=== PATIENT | female | born 1995 | race Caucasian/White ===

== ENCOUNTER → 2022-08-02 13:44 | Outpatient (CLI) | payer BC, SELFPAY ==
--- NOTE | ~2022-08-02 | US_ITS ---
US pelvic complete w TV DATE: 08/02/2022 14:11 INDICATION: Right pelvic and perineal pain TECHNIQUE: Real-time imaging via transabdominal and transvaginal approaches COMPARISON: 07/17/2022 transvaginal ultrasound examination FINDINGS: The uterus measures 6.1 cm height, 2.8 cm AP and 3.6 cm transverse dimension. The central e ndometrial echo complex measures 4 mm AP dimension. Right ovary 3.3 x 3.2 x 2.7 cm with vascular flow. There is a 1.5 x 1.8 x 2.1 cm hypoechoic lesion wi thin the right ovary; this is diminished from approximately 3.6 x 3.7 cm dimension on 07/17/2022 exam ination.. The left ovary measures 2.5 x 1.8 x 2.2 cm, with vascular flow. No free pelvic fluid collection is noted. IMPRESSION: Diminished size of cystic lesion of right ovary since 07/17/2022 Reviewed, dictated and finalized at [facility] Reviewed, dictated and finalized at [facility].
== END ==
PROVIDERS: PCP Obstetrics & Gynecology; Visit Provider Obstetrics & Gynecology
DX: N83.201 Unspecified ovarian cyst, right side (principal); R10.2 Pelvic and perineal pain
CPT/HCPCS: 76830; 76856

== ENCOUNTER 2022-10-24 10:09 | Emergency (ER) | payer OTHER, BC, SELFPAY ==
--- NOTE | 2022-10-24 10:24 | PC.NURSE ---
Patient washing eye in eye wash station. Patient instructed for about 15-20 minutes.
[2022-10-24 10:53] VITALS: BP 152/97; PULSE 94; RESP 18; TEMP 36.9; O2SAT 100
--- NOTE | 2022-10-24 11:03 | ED_ITS ---
HPI - Eye Problem General Chief complaint: Eye Problems Stated complaint: Protonix splash into her eye with burning Time Seen by Provider: 10/24/22 10:18 History of Present Illness HPI Narrative: Patient was upstairs drying up Protonix when I asked we sprayed into her face, she was wearing glasses which protected most of her eyes however she did get some in her right eye, she noticed some burning, however the eyewash was broken. Related Data Allergies Allergy/AdvReac Type Severity Reaction Status Date / Time Cephalosporins AdvReac Mild RASH Unverified 10/24/22 10:10 INFANT latex AdvReac Mild RASH Verified 10/24/22 10:10 CHILD FROM GLOVES Review of Systems Review of Systems: Right eye burning Exam Narrative: EXAMINATION OF ORGAN SYSTEMS/BODY AREAS: Constitutional: Vital signs per nursing GENERAL: Appears somewhat uncomfortable HEAD: Normal with no signs of head trauma. EYES: EOMI, red right eye ENT: Hearing grossly intact LUNGS: Nonlabored breathing. HEART: [Regular rate and rhythm] EXT: Normal range of motion SKIN: [No rashes or lesions.] NEURO: [Alert and oriented x 3. No gross focal sensory or strength deficits.] PSYCH: slightly anxious affect Course Vital Signs Vital signs: Vital Signs Temperature 98.4 F 10/24/22 10:53 Pulse Rate 94 10/24/22 10:53 Respiratory Rate 18 10/24/22 10:53 Blood Pressure 152/97 H 10/24/22 10:53 Pulse Oximetry 100 10/24/22 10:53 Oxygen Delivery Room Air 10/24/22 10:53 Temperature 98.2 F 10/24/22 11:12 Pulse Rate 105 H 10/24/22 11:12 Respiratory Rate 15 10/24/22 11:12 Blood Pressure 156/92 H 10/24/22 11:12 Pulse Oximetry 99 10/24/22 11:12 Oxygen Delivery Room Air 10/24/22 10:53 MDM - Eye Problem MDM Narrative Medical decision making narrative: 27-year-old female presenting after accidental splash of Protonix in her eye, vital signs are stable, I have asked her to go to the eyewash for at least 15 to 30 minutes of irrigation. Reevaluation after the eyewash, she now has normal exam, her symptoms have resolved, she has no blurry vision, PERRL and EOMI on exam. Return precautions provided and she can follow-up with the eye doctor if not improved. Discharge Plan Discharge Clinical Impression: Chemical exposure of eye Patient Disposition: Home, Self-Care Condition: Stable Instructions: Antibiotic Form, Chemical Eye Lorenzana (ED) Additional Instructions: You can followup with an eye doctor in 2 days, and return to the ER for any issues (blurry vision, eye pain, tearing or discharge, etc). Prescriptions: No Action medroxyprogesterone [Provera] 10 mg tablet 10 mg PO DAILY Qty: 10 0RF Rx Instructions: take 1 tab by mouth for 10 days drospirenone-ethinyl estradiol [ASHOK (28)] 3-0.02 mg tablet 1 tablet PO DAILY Qty: 84 3RF Follow-up/Referrals: [facility] [Outside] - 2 Days PHYSICIAN NOT ON STAFF,NONSTAFF [Primary Care Provider] -
[2022-10-24 11:12] VITALS: BP 156/92; PULSE 105; RESP 15; TEMP 36.8; O2SAT 99
== END 2022-10-24 11:35 | disposition home or self-care (01) ==
LOC: ANHED 11:23
PROVIDERS: Emergency Provider Emergency Medicine
DX: Z57.5 Occupational exposure to toxic agents in other industries (principal)
CPT/HCPCS: 99282

== ENCOUNTER 2024-01-21 10:00 | Outpatient (RCR) | payer OTHER, SELFPAY ==
--- NOTE | 2024-01-01 17:22 | PTOPEVAL1 ---
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 She states it has been 3 weeks since the injury, is has gotten better, but she still feels the pain. She states initially she would wake up from pain when rolling over in bed, but it has not done this in a week now. She reports 0/10 at rest, 6-7/10 at the worst, with painful breathing initially. Reported Pain Level Pain Score 0: Self Report Assessment PT Clinical Summary Macy presents to therapy today for her initial evaluation with a diagnosis of R rib pain. Today she demonstrates tenderness with central thoracic PAs and R side rib palpation from T4-T8, increased soft tissue density and thoracic paraspinal tightness with palpable spasms. She reports thoracic pain pain with thoracic flexion and extension as well as end range shoulder motion. Skilled therapy services are indicated to address soft tissue restrictions, improve mobility, pain management, body mechanics education, and to return to PLOF. Plan of Care Interventions Electrical Stimulation,Hot Pack/Cold Pack,Manual Therapy,Neuro Re-education,Patient/Caregiver Educati,Therapeutic Activities,Therapeutic Exercise PT Services Indicated Yes Treatment Frequency and 2x/wk for 6 visits Duration These treatments will address the objective and functional deficits as defined above. The patient will be advanced safely and appropriately in order for the patient to progress towards his/her prior level of function. Additional exercises will be introduced and as well as a comprehensive home exercise program upon discharge, if needed, ?to ensure carryover of functional gains achieved in the clinic. This treatment plan has been reviewed and agreement upon by the patient.
--- NOTE | 2024-01-01 17:23 | OPREHPOC ---
Outpatient Therapy Plan of Care This is a Multidisciplinary Plan of Care that may contain components documented by all disciplines (PT, OT, and ST.) PT Problem 1 PT Problem #1 Knowledge Deficit PT Goal 1 Goal Pt to be IND with issued HEP Target Visit 6 PT Problem 2 PT Problem #2 Pain PT Goal 1 Goal Pt to report back pain no greater than 3/10 in the last week. Target Visit 6 PT Goal 2 Goal Pt to report 75% improvement in overall symptoms. Target Visit 6 PT Problem 3 PT Problem #3 Impaired Range of Motion PT Goal 1 Goal Pt to report no pain with thoracic ROM. Target Visit 6 PT Problem 4 PT Problem #4 Impaired Functional Mobil PT Goal 1 Goal Pt to demonstrate a 30lb functional lift and carry without an increase in pain. Target Visit 6
--- NOTE | 2024-01-21 10:52 | PTOPDC ---
Assessment and note entered by Madhu Ortiz, PT, DPT Evaluation Information Assessment Status Discharge Diagnosis R rib pain Onset 12/08/23 Subjective Information Pt states overall this is doing great, she has incorporated the exercises this does at therapy at home as well. She declines any stabbing or consistent pains when at work, states she she will feel it a little bit if she really strains. Reported Pain Level Pain Score 0: Self Report Assessment PT Clinical Summary Macy presents to therapy today for her progress report following 6 visits of skilled therapy to treat her diagnosis of R rib pain. Today she reports no tenderness to palpation, demonstrates ROM that is WNL and does not increase pain, and good UE strength without pain. She has met all of her therapy goals and no longer requires skilled services at this time.
== END 2024-01-21 15:01 | disposition home or self-care (01) ==
LOC: ANHGOSHPT 10:00
PROVIDERS: Visit Provider Internal Medicine
DX: S23.41XD Sprain of ribs, subsequent encounter (principal)
CPT/HCPCS: 97014; 97110; 97140; 97161; 97530; G0283